=== PATIENT | female | born 1950 | race Caucasian/White ===

== ENCOUNTER 2018-05-05 19:50 | Emergency (ER) | payer OTHER, SELFPAY | END 2018-05-05 23:20 | disposition E | LOC: NAV ERS 19:50 | DX: I46.9 Cardiac arrest, cause unspecified (principal); I25.10 Atherosclerotic heart disease of native coronary artery without angina pectoris; E78.5 Hyperlipidemia, unspecified | CPT/HCPCS: 36680; 92950; 99292 ==